=== PATIENT | male | born 2000 | race Caucasian/White ===

== ENCOUNTER → 2022-06-28 | Outpatient (CLI) | payer BC, OTHER ==
--- NOTE | 2022-06-28 19:05 | Diagnostic Imaging Report ---
INDICATION: Shoulder pain EXAMINATION: Left shoulder 06/28/2022 4 views FINDINGS: There is no evidence for an acute fracture or dislocation. The joint spaces are well maintained. There is no significant soft tissue swelling. IMPRESSION: No acute process. Dictated by: Dictated on workstation # [id number]
== END ==
LOC: RAD FS 11:04
PROVIDERS: ATTEND Nurse Practitioner
DX: M25.511 Pain in right shoulder (principal)
CPT/HCPCS: 73030